=== PATIENT | male | born 1965 | race Caucasian/White ===

== ENCOUNTER 2021-05-07 11:18 | Emergency (ER) | payer BC ==
--- NOTE | 2021-05-07 11:32 | ED Physician Documentation ---
PD HPI FOCAL NEURO - Stated complaint Stated Complaint: SRTOKE LIKE SX - History obtained from History obtained from: Patient - History of Present Illness Timing - onset: How many minutes ago (30) Timing - duration: Minutes (30) Timing - details: Abrupt onset (sitting in car with family member, and patient with abrupt onset of trouble speaking and right sided weakness.), Still present Severity of deficit: Severe Weakness: Face, Arm, Leg, Right Numbness: Face, Arm, Leg, Right Associated symptoms: Headache. No: Nausea / vomiting, Seizure, Syncope Contributing factors: positive: Other (HTN). negative: Anticoagulated, Vascular dz, Atrial fibrillation Baseline status: positive: A&OX3, ambulatory, indep Similar symptoms before: Has not had sx before Recently seen: Not recently seen Review of Systems Unable to obtain: AMS Neurologic: reports: Headache PD PAST MEDICAL HISTORY - Past Medical History Cardiovascular: Hypertension, High cholesterol Respiratory: None Neuro: None Endocrine/Autoimmune: None Musculoskeletal: None - Past Surgical History Past Surgical History: No - Allergies Allergies/Adverse Reactions: Allergies Allergy/AdvReac Type Severity Reaction Status Date / Time Penicillins Allergy Unknown Verified 05/07/21 12:04 - Living Situation Living Situation: reports: With spouse/s.o. Living Arrangement: reports: At home (they are visiting from [place], [place] to visit his son, who is based here at [facility]. ) - Social History Does the pt smoke?: No - Family History Family history: reports: Unknown PD ED PE NORMAL - Vitals Vital signs reviewed: Yes - General General: Well developed/nourished, Other (eyes open and able to answer questions (though speech is hard to comprehend).) - HEENT HEENT: Atraumatic, PERRL, EOMI - Neck Neck: Supple, no meningeal sign, No adenopathy, No bruit - Cardiac Cardiac: RRR, No murmur - Respiratory Respiratory: Clear bilaterally - Abdomen Abdomen: Soft, Non tender, Non distended - Derm Derm: Normal color, Warm and dry - Extremities Extremities: No deformity, No edema, No calf tenderness / cord - Neuro Neuro: Other (weakness and decreased sensation right arm/leg/face. dysarthria significant. ). No: No motor deficit, Normal speech Eye Opening: Spontaneous Motor: Obeys Commands Verbal: Oriented GCS Score: 15 NIHSS - Level of Consciousness Level of consciousness: (0) Alert, Keenly responsive LOC Questions: (0) Answers both Q's correct LOC Commands: (0) Performs both correctly - Gaze Best Gaze: (0) Normal - Visual Visual: (0) No loss - Facial Palsy Facial Palsy: (3) Complete paralysis - Motor Arms (both separate) Motor Arm (right): (4) No movement Motor Arm (left): (0) No drift - Motor Legs (both separate) Motor Leg (right): (4) No movement Motor Leg (left): (0) No drift - Limb Ataxia Limb Ataxia: (2) Present in 2 limbs - Sensory Sensory: (2) [id number] loss - Best Language Best Language: (0) No aphasia - Dysarthria Dysarthria: (2) Severe dysarthria - Extinction and Inattention (formally neg Extinction and inattention: (0) No abnormality - Total Score/Results Total Score/Result: 17 Results - Vitals Vitals: Vital Signs - 24 hr 05/07/21 05/07/21 05/07/21 11:32 12:06 12:30 Temperature 36.9 C Heart Rate 99 92 99 Respiratory 16 13 17 Rate Blood Pressure 176/101 H 179/101 H 164/98 H O2 Saturation 98 99 95 05/07/21 12:47 Temperature Heart Rate 101 H Respiratory 18 Rate Blood Pressure 158/88 H O2 Saturation 98 Oxygen O2 Source Room air - EKG (time done) 11:48 Rate: Rate (enter#) (90) Rhythm: NSR [place]: Normal Intervals: Normal [place] QRS: Normal Ischemia: Normal ST segments. No: ST elevation c/w ischemia, ST depression - Labs Labs: Laboratory Tests 05/07/21 05/07/21 05/07/21 11:27 11:27 11:27 WBC 7.4 RBC 5.20 Hgb 16.0 Hct 48.0 MCV 92.3 MCH 30.8 MCHC 33.3 RDW 13.2 Plt Count 521 H MPV 9.7 Neut # (Auto) 5.2 Lymph # (Auto) 1.2 L [place] # (Auto) 0.7 Eos # (Auto) 0.1 Baso # (Auto) 0.1 Absolute Nucleated RBC 0.00 Nucleated RBC % 0.0 PT 12.3 INR 1.1 APTT 28.0 Sodium 138 Potassium 3.4 L Chloride 101 Carbon Dioxide 25 Anion Gap 12.0 BUN 17 Creatinine 0.9 Estimated GFR (MDRD) 87 L Glucose 129 H POC Whole Bld Glucose Calcium 9.4 Magnesium 2.3 Total Bilirubin 0.7 AST 22 ALT 29 Alkaline Phosphatase 63 Total Protein 7.8 Albumin 4.5 Globulin 3.3 Albumin/Globulin Ratio 1.4 Lipase 31 TSH Ethyl Alcohol < 5.0 SARS-CoV-2 (PCR) 05/07/21 05/07/21 05/07/21 11:27 11:30 12:03 WBC RBC Hgb Hct MCV MCH MCHC RDW Plt Count MPV Neut # (Auto) Lymph # (Auto) [place] # (Auto) Eos # (Auto) Baso # (Auto) Absolute Nucleated RBC Nucleated RBC % PT INR APTT Sodium Potassium Chloride Carbon Dioxide Anion Gap BUN Creatinine Estimated GFR (MDRD) Glucose POC Whole Bld Glucose 118 H Calcium Magnesium Total Bilirubin AST ALT Alkaline Phosphatase Total Protein Albumin Globulin Albumin/Globulin Ratio Lipase TSH 2.96 Ethyl Alcohol SARS-CoV-2 (PCR) NOT DETECTED - Rads (name of study) head CT Radiology: Prelim report reviewed (large frontal left ICH measuring 4.2 cm, causing 4 mm midline shift and effacement of sulci. ), See rad report chest xray Radiology: Prelim report reviewed (no acute process), See rad report PD MEDICAL DECISION MAKING - ED course Complexity details: reviewed results (large ICH. ), re-evaluated patient (NO change in mentation, breathing, airway. Is able to control airway. good sats. Does not need intubating. BP elevated and started drip for better control. ), considered differential (abrupt aphasia and unilateral weakness with headache; presume ICH ersus ischemic stroke. ), d/w patient ED course: Patient given IV meds for pain, to help symptoms and decrease BP. BP still elevated, so started on Nicardipine drip for titrated BP control. Transfer center for accepted patient direct to ER> I talked with ED attending, who accepted the patient. [employer] able to fly. - Critical Care Time(min): 50 Time Includes: Direct patient care, Reassess patient, Document care, Coordinate care, Medical consult, Family consult for tx jan Data interpretation: Labs, CXR Procedures excluded from critical care time: EKG Departure - Departure Disposition: 02 Transfer Acute Care Hosp Clinical Impression: Intraparenchymal hemorrhage of brain, Unilateral weakness Condition: Stable Record reviewed to determine appropriate education?: Yes Discharge Date/Time: 05/07/21 13:06
[2021-05-07] MEDS ORDERED: SODIUM CHLORIDE 0.9% 1,000 ML IV STA (11:39)
[2021-05-07 11:47] LABS: BASOPHILS # (AUTO) 0.1 10^3/uL (0.0-0.1); BASOPHILS % (AUTO) 1.2 %; EOSINOPHILS # (AUTO) 0.1 10^3/uL (0.0-0.7); EOSINOPHILS % (AUTO) 1.9 %; LYMPHOCYTES # (AUTO) 1.2 10^3/uL (1.5-3.5); LYMPHOCYTES % (AUTO) 16.7 %; MEAN CORPUSCULAR HEMOGLOBIN 30.8 pg (27.0-31.0); MEAN CORPUSCULAR HGB CONC 33.3 g/dL (32.0-36.0); MEAN CORPUSCULAR VOLUME 92.3 fL (80.0-94.0); MEAN PLATELET VOLUME 9.7 fL (7.4-11.4); MONOCYTES # (AUTO) 0.7 10^3/uL (0.0-1.0); NEUTROPHILS # (AUTO) 5.2 10^3/uL (1.5-6.6); NEUTROPHILS % (AUTO) 69.5 %; PLT - PLATELET COUNT 521 10^3/uL (130-450); RED CELL DISTRIBUTION WIDTH 13.2 % (12.0-15.0); WHITE BLOOD COUNT 7.4 x10^3/uL (4.8-10.8)
[2021-05-07 11:55] LABS: INR 1.1 (0.8-1.2); PT - PROTHROMBIN TIME 12.3 secs (9.9-12.6)
[2021-05-07] MEDS ORDERED: HYDROmorphone 1 MG/ML CARPUJECT IVP STA (12:07)
[2021-05-07 12:08] LABS: ALBUMIN 4.5 g/dL (3.2-5.5); ALBUMIN/GLOBULIN RATIO 1.4 (1.0-2.2); ALKALINE PHOSPHATASE 63 IU/L (42-121); ALT ALANINE AMINOTRANSFERASE 29 IU/L (10-60); AST ASPARTATE AMINOTRANSFERASE 22 IU/L (10-42); BILIRUBIN,TOTAL 0.7 mg/dL (0.2-1.0); BUN - BLOOD UREA NITROGEN 17 mg/dL (6-20); CALCIUM 9.4 mg/dL (8.5-10.3); CARBON DIOXIDE - CO2 25 mmol/L (21-32); CHLORIDE 101 mmol/L (101-111); CREATININE 0.9 mg/dL (0.6-1.2); ETOH - ETHANOL < 5.0 mg/dL; GFR - MDRD 87 (>89); GLUCOSE 129 mg/dL (70-100); LIPASE 31 U/L (22-51); MAGNESIUM 2.3 mg/dL (1.7-2.8); POTASSIUM 3.4 mmol/L (3.5-5.0); SODIUM 138 mmol/L (135-145); TOTAL PROTEIN 7.8 g/dL (6.7-8.2)
[2021-05-07] MEDS ORDERED: NICARDIPINE HCL 25 MG in SODIUM CHLORIDE 0.9% 240 ML IV STA (12:08)
[2021-05-07] MEDS ORDERED: TRANEXAMIC ACID 1,000 MG in SODIUM CHLORIDE 0.9% 100ML 100 ML IV STA (12:08)
--- NOTE | 2021-05-07 12:09 | CT Report ---
PROCEDURE: Head W/O Stroke Protocol, CT INDICATIONS: abrupt right weakness 11 am TECHNIQUE: Noncontrast 4.5 mm thick angled axial sections acquired from the foramen magnum to the vertex, with c oronal reformats. For radiation dose reduction, the following was used: automated exposure control, adjustment of mA and/or kV according to patient size. COMPARISON: FINDINGS: Image quality: Excellent. CSF spaces: Basal cisterns are patent. No extra-axial fluid collections. Ventricles are normal in size and shape. Brain: Left frontal parenchymal hemorrhage measures 4.2 x 3.4 x 3.8 cm corresponds to an estimated vo lume of 27 cc. Surrounding vasogenic edema present associated with 4 mm of midline shift. Small right frontal 1.2 cm extra-axial meningioma noted near the vertex as well. Skull and face: Calvarium and visualized facial bones are intact, without suspicious lesions. Prior right temporal old craniectomy , small jacquelyn hole Sinuses: Visualized sinuses and mastoids are clear. IMPRESSION: Left frontal parenchymal hematoma measuring up to 4.2 cm results in 4 mm midline shift. Incidental small right frontal meningioma This study fulfills neurological imaging criteria for inclusion or exclusion of acute stroke therapie s based on available published neurological imaging guidelines. Note: Critical results were discussed with Sales Team Member at 11:07 AM [place] time on 05/07/2021 Reviewed by: Abimael Muro MD on 05/07/2021 11:08 AM [facility] Approved by: Abimael Muro MD on 05/07/2021 11:08 AM [facility] Station ID: [id number]
--- NOTE | 2021-05-07 12:27 | CT Report ---
PROCEDURE: CT angiogram head and neck with contrast INDICATIONS: right sided weak, aphasia 11 am CONTRAST: IV CONTRAST: Optiray 320 ml: 80 PO CONTRAST: *NO PO CONTRAST TECHNIQUE: Helical axial CT of the head and neck were obtained after intravenous contrast injection u tilizing an angiographic protocol. For radiation dose reduction, the following was used: automated e xposure control, adjustment of mA and/or kV according to patient size. COMPARISON: CT brain same day FINDINGS: Image quality: Excellent. HEAD CT ANGIOGRAPHY: Anterior circulation: Intracranial internal carotid arteries are normal in size and flow. The flow within the paired anterior cerebral arteries is normal and symmetric. The flow within the middle cer ebral arteries is normal and symmetric. The anterior communicating artery is seen. No aneurysms are seen. Posterior circulation: Visualized portions of the vertebral arteries demonstrate normal caliber, and join to form a normal appearing basilar artery. Flow within the posterior cerebral arteries is norm al and symmetric. No aneurysms are seen. 4.2 cm left frontal parenchymal hemorrhage with surrounding edema is noted without internal enhanceme nt to suggest active bleeding. 4 mm of midline shift is unchanged. There is a partially calcified enh ancing right frontal extra-axial mass lesion measures 0.7 cm in thickness and 2.3 cm in width with mi ld mass effect. Second right frontal extra-axial mass is similar in characteristics measuring 9 x 4 m m. Right temporal prior craniectomy noted. NECK CT ANGIOGRAPHY: Carotid system: The great vessels demonstrate a conventional anatomy as they arise from the aortic a rch. The origins of the common carotid arteries appear patent. The common carotid arteries demonstr ate normal caliber and courses. The bifurcation regions are both widely patent. The internal caroti d arteries demonstrate normal calibers and courses. Posterior circulation: The origins of the vertebral arteries both appear widely patent. The more potter perior extracranial portions of both vertebral arteries also demonstrate normal courses and calibers. They join to form a normal appearing basilar artery. Soft tissues: Visualized neck soft tissues demonstrate no suspicious abnormalities. In the right up per lobe, there are 2 separate pleural-based enhancing nodules, larger measures 10 x 7 mm Bones: No suspicious bony lesions. Visualized cervical spine appears normally aligned. IMPRESSION: 1. Stable 4.2 cm in the frontal parenchymal hematoma with 4 mm of midline shift. No evidence of activ e bleeding or underlying enhancement. 2. Incidental 2 separate right frontal extra-axial mass lesions with calcification and enhancement. T he primary differential would be en plaque meningiomas. Other etiologies not excluded. 3. Prior right temporal craniectomy noted. 4. Right upper lobe pleural-based nodules measure up to 1 cm. Primary versus metastatic etiologies ar e considered. Frontal The estimate of stenosis included in the report of the imaging study was calculated using the NASCET method Reviewed by: Abimael Muro MD on 05/07/2021 11:26 AM [facility] Approved by: Abimael Muro MD on 05/07/2021 11:26 AM [facility] Station ID: [id number]
--- NOTE | 2021-05-07 12:40 | XRAY Report ---
PROCEDURE: Chest 1 View X-Ray INDICATIONS: chest pain TECHNIQUE: One view of the chest was acquired. COMPARISON: None FINDINGS: Surgical changes and devices: None. Lungs and pleura: No pleural effusions or pneumothorax. Interstitial markings in both lungs. Mediastinum: Mediastinal contours appear normal. Heart size is mildly enlarged. Bones and chest wall: No suspicious bony lesions. Overlying soft tissues appear unremarkable. IMPRESSION: Mild cardiomegaly with mildly increased interstitial markings in the central/perihilar lungs. Finding s suggest pulmonary edema. Reviewed by: Ricky Renee MD on 05/07/2021 12:39 PM PST Approved by: Ricky Renee MD on 05/07/2021 12:39 PM PST Station ID: [id number]
[2021-05-07 12:48] VITALS: BP 158/88
[2021-05-07] MEDS ORDERED: IOVERSOL 320 100 ML VIAL IVP ONE (12:58)
== END 2021-05-07 13:06 | disposition short-term general hospital (02) ==
LOC: ED 11:18
DX: I61.9 Nontraumatic intracerebral hemorrhage, unspecified (principal); R47.01 Aphasia; I10 Essential (primary) hypertension
CPT/HCPCS: 36415; 70450; 70496; 70498; 71045; 80053; 80320; 83690; 83735; 84443; 85025; 85610; 85730; 87635; 93005; 96365; 96368; 96375; 99285; 99291; J1170; Q9967